=== PATIENT | male | born 1960 | race Caucasian/White ===

== ENCOUNTER 2024-04-16 22:46 | Emergency (ER) | payer OTHER ==
--- NOTE | 2024-04-16 22:51 | EDPHYS ---
Physician Documentation [facility] Name: Garry Canales Age: 63 yrs Sex: Male : 1960 Arrival Date: 04/16/2024 Time: 22:46 Bed 6 Private MD: ED Physician Hemanth Marshall HPI: 04/16 22:47 This 63 yrs old Male presents to ER via Unassigned with complaints of Near Syncope. rn 22:47 The patient has experienced near-syncope. Onset: The symptoms/episode began/occurred rn just prior to arrival. Duration: This was a single episode. Associated injury: The patient did not suffer any apparent associated injury. Current symptoms: Currently, the patient is not experiencing any symptoms. The patient has experienced similar episodes in the past. Patient reports took his medication as he usually does, got up to go get some water and got dizzy lightheaded. States this happens several times a year and would not have called 911. Denies syncope. States visiting ex- and she got scared and called 911. Patient initially refused 911 transport but was convinced to come. Patient feels completely fine and does not want any evaluation. Denies any chest pain or shortness of breath. No abdominal pain. No recent illness or fever.. Historical: - Allergies: 22:55 Robaxin; al5 22:55 Cephalexin; al5 - PMHx: 22:55 brain injury; al5 - PSHx: 22:55 Cholecystectomy; open abdominal surgery; al5 - Immunization history:: Adult Immunizations up to date. - Infectious Disease History:: Denies. - Family history:: not pertinent. - Hospitalizations: : No recent hospitalization is reported. - Social history:: Smoking status: unknown. ROS: 22:47 Constitutional: Negative for fever, chills, and weight loss, Neck: Negative for injury, rn pain, and swelling, Cardiovascular: Negative for chest pain, palpitations, and edema, Respiratory: Negative for shortness of breath, cough, wheezing, and pleuritic chest pain, Abdomen/GI: Negative for abdominal pain, nausea, vomiting, diarrhea, and constipation, MS/Extremity: Negative for injury and deformity, Skin: Negative for injury, rash, and discoloration, Neuro: Negative for headache, weakness, numbness, tingling, and seizure, Exam: 22:47 Constitutional: This is a well developed, well nourished patient who is awake, alert, rn and in no acute distress. Head/Face: Normocephalic, atraumatic. ENT: Moist mucous membranes Cardiovascular: Regular rate and rhythm. No pulse deficits. Respiratory: No increased work of breathing, no retractions or nasal flaring. Abdomen/GI: Soft, non-tender MS/ Extremity: Pulses equal, no cyanosis. Neurovascular intact. Full, normal range of motion. Equal circumference. Neuro: Awake and alert, GCS 15, oriented to person, place, time, and situation. Cranial nerves II-XII grossly intact. Motor strength 5/5 in all extremities. Sensory grossly intact. Cerebellar exam normal. Normal gait. Vital Signs: 22:47 BP 115 / 70; Pulse 65; Resp 16; Temp 98.2; Pulse Ox 100% on R/A; Weight 68.04 kg; al5 Height 5 ft. 8 in. ; Pain 0/10; 22:47 Body Mass Index 22.81 (68.04 kg, 172.72 cm) al5 22:47 Pain Scale: Adult al5 MDM: 22:47 Medical Screening Exam initiated rn 22:47 Differential Diagnosis: idiopathic syncope, vasovagal episode, Medication side effect. rn Data reviewed: vital signs, nurses notes, and as a result, I will discharge patient. Counseling: I had a detailed discussion with the patient and/or guardian regarding the historical points, exam findings, and any diagnostic results supporting the discharge/admit diagnosis, the need for outpatient follow up, to return to the emergency department if symptoms worsen or persist or if there are any questions or concerns that arise at home. Response to treatment: the patient's symptoms have resolved after treatment, the patient's condition has returned to base line, the patient is now symptom free, and as a result, I will discharge patient. ED course: Patient reports feels completely fine and does not want anything done. States this happens often and attributes it to the many medications that he takes. Denies syncope. No other symptoms. Normal vital signs here. Patient wants to go home and understands risk of going home without further evaluation. Patient ambulatory and able to walk briskly down the emergency room hallway without assistance.. 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
--- NOTE | 2024-04-16 22:51 | ER ---
Nurse's Notes [facility] Name: Garry Canales Age: 63 yrs Sex: Male : 1960 Arrival Date: 04/16/2024 Time: 22:46 Bed 6 Private MD: Diagnosis: Near syncope;Adverse effect of other drugs, medicaments and biological substances, initial encounter Presentation: 04/16 22:47 Chief complaint: EMS states: per the family, patient had a syncopal episode about an al5 hour ago. patient states he did not have a syncopal episode, but that he missed the love seat and fell. patient states he had taken his medications not that long ago. Coronavirus screen: At this time, the client does not indicate any symptoms associated with coronavirus-19. Ebola Screen: No symptoms or risks identified at this time. Initial Sepsis Screen: Does the patient meet any 2 criteria? No. Patient's initial sepsis screen is negative. Does the patient have a suspected source of infection? No. Patient's initial sepsis screen is negative. Risk Assessment: Do you want to hurt yourself or someone else? Patient reports no desire to harm self or others. Onset of symptoms was April 16, 2024. 22:47 Method Of Arrival: EMS: [facility] al5 22:47 Acuity: SARA 3 al5 22:47 Care prior to arrival: Medication(s) given: Normal saline infusion, 250 mL IV al5 initiated. 18 GA, in the right antecubital area. Triage Assessment: 22:50 General: Appears in no apparent distress. comfortable, Behavior is calm, cooperative. al5 Pain: Denies pain. EENT: No signs and/or symptoms were reported regarding the EENT system. Neuro: Level of Consciousness is awake, alert, obeys commands, Oriented to person, place, time, situation. Cardiovascular: Capillary refill < 3 seconds Patient's skin is warm and dry. Respiratory: Airway is patent Respiratory effort is even, unlabored, Respiratory pattern is regular, symmetrical. GI: No signs and/or symptoms were reported involving the gastrointestinal system. : No signs and/or symptoms were reported regarding the genitourinary system. Derm: Skin is intact, is healthy with good turgor, Skin is pink, warm \T\ dry. normal. Musculoskeletal: No signs and/or symptoms reported regarding the musculoskeletal system. Historical: - Allergies: 22:55 Robaxin; al5 22:55 Cephalexin; al5 - PMHx: 22:55 brain injury; al5 - PSHx: 22:55 Cholecystectomy; open abdominal surgery; al5 - Immunization history:: Adult Immunizations up to date. - Infectious Disease History:: Denies. - Family history:: not pertinent. - Hospitalizations: : No recent hospitalization is reported. - Social history:: Smoking status: unknown. Screenin:54 [facility] ED Fall Risk Assessment (Adult) History of falling in the last 3 months, al5 including since admission Yes- single mechanical fall (1 pt) Confusion or Disorientation No (0 pts) Intoxicated or Sedated No (0 pts) Impaired Gait No (0 pts) Mobility Assist Device Used No (0 pt) Altered Elimination No (0 pt) Score/Fall Risk Level 0 - 2 = Low Risk Oriented to surroundings, Maintained a safe environment, Hourly rounding (assess needs \T\ fall precautionary measures) done. Abuse screen: Denies threats or abuse. Denies injuries from another. Nutritional screening: No deficits noted. Tuberculosis screening: No symptoms or risk factors identified. Assessment: 22:51 Reassessment: MD at bedside assessing patient. patient states that he feels good, does al5 not need to be seen and wants to go home. patient assessed for orthostatic, patient able to get up and walk down the [place] and back without any complications. denies chest pain, shortness of breath, weakness, dizziness, lightheadedness, or blurry vision sitting or standing. MD discharging patient at this time with follow up to primary provider. Vital Signs: 22:47 BP 115 / 70; Pulse 65; Resp 16; Temp 98.2; Pulse Ox 100% on R/A; Weight 68.04 kg; al5 Height 5 ft. 8 in. ; Pain 0/10; 22:47 Body Mass Index 22.81 (68.04 kg, 172.72 cm) al5 22:47 Pain Scale: Adult al5 ED Course: 22:47 Patient arrived in ED. al5 22:47 Hemanth Marshall MD is Attending Physician. rn 22:50 Triage completed. al5 22:51 Arm band placed on right wrist. Patient placed in the treatment room, on a stretcher. al5 22:54 Patient has correct armband on for positive identification. Bed in low position. Call al5 light in reach. Side rails up X 1. Provided Education on: discharge follow up. 22:54 No provider procedures requiring assistance completed. Maintain EMS IV. Dressing al5 intact. Good blood return noted. Site clean \T\ dry. Gauge \T\ site: 18G RAC. Flushed with 10 mL NS. 22:56 IV discontinued, intact, bleeding controlled, No redness/swelling at site. Pressure al5 dressing applied. 23:12 Harleen Ornelas, RN is Primary Nurse. al5 Administered Medications: No medications were administered Medication: 22:53 VIS not applicable for this client. al5 Outcome: 22:51 Discharge ordered by . rn 23:12 Discharged to home ambulatory, al5 23:12 Condition: good 23:12 Discharge instructions given to patient, Instructed on discharge instructions, follow up and referral plans. Demonstrated understanding of instructions, follow-up care, 23:13 Patient left the ED. al5 Signatures: Hemanth Marshall MD MD rn Langhorst, Amanda, RN RN al5 Corrections: (The following items were deleted from the chart) 22:55 22:51 Reassessment: MD at bedside assessing patient. patient states that he feels good, al5 does not need to be seen and wants to go home. patient assessed for orthostatic, patient able to get up and walk down the [place] and back without any complications. denies chest pain, shortness of breath, dizziness, lightheadedness, or blurry vision sitting or standing. MD discharging patient at this time with follow up to primary provider al5 22:56 22:55 Allergies: No Known Allergies; al5 al5
[2024-04-16 23:18] VITALS: BP 115/70; TEMP 98.2; O2SAT 100
== END 2024-04-16 23:13 | disposition home or self-care (01) ==
LOC: ER 22:46
DX: R55 Syncope and collapse (principal); T50.995A Adverse effect of other drugs, medicaments and biological substances, initial encounter
CPT/HCPCS: 99283